=== PATIENT | female | born 1990 | race Two or more races ===

== ENCOUNTER 2016-05-20 18:58 | Outpatient (CLI) | payer MEDICAID ==
[2016-05-20 19:17] VITALS: BMI 28.7
== END 2016-05-20 19:50 | disposition home or self-care (01) ==
LOC: FBCOUT 18:58 → FBC 18:58 → FBCOUT 19:50
PROVIDERS: ATTEND Family Medicine
DX: O36.8190 Decreased fetal movements, unspecified trimester, not applicable or unspecified (principal); Z3A.00 Weeks of gestation of pregnancy not specified
CPT/HCPCS: 59025; 81002; G0463

== ENCOUNTER 2016-05-29 09:36 | Outpatient (CLI) | payer MEDICAID ==
[2016-05-29 10:24] VITALS: BMI 28.3
[2016-05-29 11:00] LABS: SPECIFIC GRAVITY 1.015 (1.001-1.030); URINE BILIRUBIN NEGATIVE (NEGATIVE); URINE BLOOD NEGATIVE (NEGATIVE); URINE GLUCOSE (UA) NEGATIVE (NEGATIVE); URINE LEUKOCYTE ESTERASE NEGATIVE (NEGATIVE); URINE NITRITE NEGATIVE (NEGATIVE); URINE PROTEIN NEGATIVE (NEGATIVE); URINE UROBILINOGEN NORMAL (0-1 mg/dl)
[2016-05-29 11:01] LABS: URINE APPEARANCE CLEAR; URINE COLOR LIGHT YELLOW
[2016-05-29 12:42] LABS: URINE BACTERIA TRACE; URINE RBC RARE /hpf
== END 2016-05-29 13:10 | disposition home or self-care (01) ==
LOC: FBCOUT 09:36 → FBC 10:05 → FBCOUT 13:10
PROVIDERS: ATTEND Family Medicine
DX: O26.899 Other specified pregnancy related conditions, unspecified trimester (principal); Z3A.00 Weeks of gestation of pregnancy not specified
CPT/HCPCS: 87086; 81001; 59025; 81002; G0463

== ENCOUNTER 2016-06-09 16:47 | Outpatient (CLI) | payer MEDICAID | END 2016-06-09 18:59 | disposition home or self-care (01) | LOC: FBCOUT 16:47 → FBC 16:51 → FBCOUT 18:59 | PROVIDERS: ATTEND Family Medicine | DX: O26.899 Other specified pregnancy related conditions, unspecified trimester (principal); Z3A.00 Weeks of gestation of pregnancy not specified | CPT/HCPCS: 59025; 81002; G0463 ==

== ENCOUNTER 2016-06-11 02:41 | Inpatient (IN) | payer MEDICAID ==
[2016-06-11 03:01] VITALS: BMI 29.0
[2016-06-11] MEDS ORDERED: OXYTOCIN IN LR 500 ML IV ONE ×2 (04:51→05:01)
[2016-06-11] MEDS ORDERED: LACTATED RINGERS 1,000 ML IV PRN (04:51)
[2016-06-11] MEDS ORDERED: IV START KIT ONE (05:00)
[2016-06-11] MEDS ORDERED: PUMP TUBING ONE (05:01)
[2016-06-11] MEDS ORDERED: LIDOCAINE 1% (PRES FREE) 30 ML VIAL ONE (05:01)
[2016-06-11] MEDS ORDERED: MINERAL OIL 25 ML BOT ONE (05:01)
[2016-06-11] MEDS ORDERED: LIDOCAINE Viscous 2% 15 ML UDCUP ONE (05:01)
[2016-06-11] MEDS ORDERED: LACTATED RINGERS 0 ML ONE (05:01)
[2016-06-11] MEDS ORDERED: OXYTOCIN 10 UNITS/ML VIAL ONE (05:01)
[2016-06-11 06:32] LABS: HEMATOCRIT 33.7 % (37.0-47.0); MEAN CELL VOLUME 76.2 fl (81.0-99.0); MEAN CORPUSCULAR HEMOGLOBIN 24.9 pg (27.0-31.0); MEAN CORPUSCULAR HGB CONC 32.6 g/dl (33.0-37.0); RED CELL DISTRIBUTION WIDTH 15.7 % (11.5-14.5)
--- NOTE | 2016-06-11 07:36 | PDOC36 ---
Provider Note Subject: cc: Admission H&P HPI: 25 y.o. year old AYAD 06/19/2016, by Ultrasound at 38w6d who presents in active labor. REVIEW OF SYSTEMS GENERAL: No fever or headache EYES: No double or blurry vision. CARDIOVASCULAR: No chest pain. RESPIRATORY: No severe shortness of breath or cough. GASTROINTESTINAL: No nausea or vomiting or right upper quadrant pain. PSYCHIATRIC: No anxiety or depression. 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 Perigestational hemorrhage. Repeat for organ survey and to confirm dating 20-24 wks. 7w2d Rocio Collazo MD 11/08/15 Ultrasound on 02/04/16 06/18/16 +1d c/w 1st u/s. Male. Ant placenta. No previa. Normal survey 20w5d Rocio Collazo MD 02/08/16 [facility] No past surgical history SOC HX reports that she has never smoked. She has never used smokeless tobacco. She reports that she does not drink alcohol or use illicit drugs. ALL No Known Allergies MEDICATIONS Current outpatient prescriptions: ferrous sulfate 325 (65 FE) MG EC tablet, Take 1 tablet (325 mg total) by mouth daily with breakfast Indications: anemia., Disp: 90 tablet, Rfl: 3 multivitamin (ULTRATABS) tablet, Take 1 tablet by mouth daily., Disp : 90 tablet, Rfl: 3 PHYSICAL EXAMINATION VITAL SIGNS: S Estimated body mass index is 29.68 kg/(m^2) as calculated from the following: Height as of 06/06/16: 1.54 m (5' 0.63"). Weight as of 06/06/16: 70.4 kg (155 lb 3.3 oz). Total weight gain is 10.525 kg (23 lb 3.3 oz) FHT: 140's intermittent auscultation, mod milady, no decels [place]: q2-4 min SVE: 6-8 cm GENERAL: No distress CARDIOVASCULAR: Regular rate and rhythm, no murmur, JVD or pedal edema. RESPIRATORY: Clear to auscultation bilaterally, respiratory effort is nonlabored at rest. GASTROINTESTINAL: Gravid no fundal tenderness NEUROLOGIC: Deep tendon reflexes are 2+ in the knees. Cranial nerves II-XII are grossly intact. PSYCHIATRIC: Alert and oriented x3, judgement and memory is intact, mood is pleasant. LABS & STUDIES O+ Antibody- Rubella Immune Hep B- HIV- GC/Chlamydia- Trep- Hgb 11.5 GBS neg ASSESSMENT 25 y.o. year old AYAD 06/19/2016, by Ultrasound at 38w6d who presents in active labor PLAN Labor- Anticipate . Expectant management. GBS neg RH+ Natural Rubella non immune- PP vaccine
[2016-06-11] MEDS ORDERED: LIDOCAINE 1% (PRES FREE) 30 ML VIAL IF ONE (09:09)
[2016-06-11] MEDS ORDERED: LANOLIN 50 APPLIC/7G TUBE TP PRN (09:27)
[2016-06-11] MEDS ORDERED: MEASLES,MUMPS&RUBELLA VACCINE 0.5 ML VIAL SUB-Q V ONE (09:27)
[2016-06-11] MEDS ORDERED: BENZOCAINE/MENTHOL 60 APPLIC/BOT TP PRN (09:27)
[2016-06-11] MEDS ORDERED: MAGNESIUM HYDROXIDE 30 ML UDCUP PO PRN (09:27)
--- NOTE | 2016-06-11 09:29 | PCMDEL ---
Delivery Note - Labor 1st stage (hr/min):: 8 hours 2nd stage (hr/min):: 12 min 3rd stage (hr/min):: 4 min Total (hr/min):: 8 hours Pushed (hr/min):: 12 min - Delivery Delivery (Date): 06/11/16 Delivery (Time): 09:02 Infant Gender: Male Presentation: Cephalic Position: OA Umbilical Cord: 3 Vessel Delayed Cord Clamping:: < 1-2 min 1 Minute Total: 9 5 Minute Total: 10 Placenta:: intact EBL:: 500 Perineum:: Left periurethral tear repaired with 3-0 vicryl in running fashion. Anesthesia/Meds:: local Comments:: Presented in active labor. Normal labor course. Reassuring FM throughout. Delivered via without complications. Vigorous infant. Delayed cord clamping. Active third stage with pit and fundal massage. Left periurethral tear easily repaired in running fashion.
[2016-06-11] MEDS: DOCUSATE SODIUM 100 MG CAPSULE PO PRN (09:50)
[2016-06-11] MEDS: IBUPROFEN 800 MG TABLET PO PRN ×2 (09:50→16:00)
[2016-06-11] MEDS: HYDROCODONE/ACETAMINOPHEN 5/325MG TABLET PO PRN (16:00)
[2016-06-12] MEDS: IBUPROFEN 800 MG TABLET PO PRN ×2 (00:41→08:36)
[2016-06-12] MEDS: HYDROCODONE/ACETAMINOPHEN 5/325MG TABLET PO PRN (00:41)
[2016-06-12 06:46] LABS: HEMATOCRIT 31.7 % (37.0-47.0); HEMOGLOBIN 10.2 gm/l (12.0-16.0)
[2016-06-12] MEDS: DOCUSATE SODIUM 100 MG CAPSULE PO PRN (08:36)
[2016-06-12 09:35] VITALS: BP 101/57
--- NOTE | 2016-06-12 11:41 | PDOC44 ---
- Subjective Day: 1 Reports Pain Tolerable, Reports , Reports Lochia Light, Reports Tolerating Regular Diet, Denies Nausea, Denies Vomiting, Denies Fever - Objective Temp Pulse Resp BP Pulse Ox 97.0 F 67 16 101/57 06/12/16 09:00 06/12/16 09:00 06/12/16 09:00 06/12/16 09:00 Lab Results 06/12/16 05:15 Hgb 10.2 L Hct 31.7 L Current Medications Generic Name Dose Route Start Last Admin Trade Name Freq PRN Reason Stop Dose Admin Acetaminophen/Hydrocodone Bitart 1 - 2 tab 06/11/16 09:27 06/12/16 00:41 [place] 5/325 PO 1 tab Q4H PRN Administration Pain (Moderate) Benzocaine/Menthol 1 applic 06/11/16 09:27 06/12/16 00:43 Dermoplast TP 1 applic PRN PRN Administration Patient Comfort Docusate Sodium 100 mg 06/11/16 09:27 06/12/16 08:36 Colace PO 100 mg DAILY PRN Administration Comfort Emollient Ointment 1 applic 06/11/16 09:27 [id number] TP PRN PRN sore nipples Ibuprofen 800 mg 06/11/16 09:27 06/12/16 08:36 Motrin PO 800 mg Q6H PRN Administration Pain (Mild) Magnesium Hydroxide 30 ml 06/11/16 09:27 Milk Of Magnesia PO BEDTIME PRN Constipation Sodium Chloride 10 ml 06/11/16 09:27 Normal Saline 10ml Flush IV PRN PRN IV Flush - Physical Exam General: Afebrile Psych/Mental Status: Mood/Affect Appropriate, Judgment/Insight Intact, Bonding Well Neurological: Grossly Intact, Alert HEENT: Atraumatic, EOMI Lungs: Clear to Auscultation Bilaterally, Normal Air Movement Cardiovascular: Regular Rate and Rhythm, Normal S1, Normal S2, No Murmur Fundus: Firm, Midline, Below Umbilicus - Problems:Assessment/Plan (1) Normal vaginal delivery Status: AcuteAssessment/Plan: PPD#1, doing well Meeting pp milestones support for Stable for dc home today Disposition: Anticipate DC to Home
== END 2016-06-12 13:32 | disposition home or self-care (01) | DRG 775 ==
LOC: FBCOUT 02:41 → FBC 02:45 → FBCOUT 04:45 → FBC 04:46
PROVIDERS: ADMIT Family Medicine; ATTEND Family Medicine
PROC: 10E0XZZ Delivery of Products of Conception, External Approach (ICD-10-PCS; principal; 2016-06-11)
PROC: 0UQMXZZ Repair Vulva, External Approach (ICD-10-PCS; 2016-06-11)
PROC: 3E0234Z Introduction of Serum, Toxoid and Vaccine into Muscle, Percutaneous Approach (ICD-10-PCS; 2016-06-12)
DX: O99.02 Anemia complicating childbirth (principal); O71.82 Other specified trauma to perineum and vulva; Z3A.38 38 weeks gestation of pregnancy; Z37.0 Single live birth; Z23 Encounter for immunization